=== PATIENT | male | born 1940 | race Caucasian/White ===

== ENCOUNTER 2016-05-10 05:55 | Day surgery (SDC) | payer MEDICARE ==
[~2016-05-10 05:55] MED LIST: IV START KIT ONE; LACTATED RINGERS 0 ML ONE
[2016-05-10] MEDS ORDERED: CEFAZOLIN SODIUM 2 GRAM PREMIX 100 ML IV ONE (06:00)
[2016-05-10] MEDS ORDERED: LACTATED RINGERS 1,000 ML ONE ×2 (06:00→07:39)
[2016-05-10] MEDS ORDERED: CEFAZOLIN SODIUM 2 GRAM PREMIX 100 ML IV SCH (06:00)
[2016-05-10] MEDS ORDERED: IV START KIT ONE (06:00)
[2016-05-10] MEDS ORDERED: SPINAL PROCEDURAL TRAY 1 EACH ONE (07:07)
[2016-05-10] MEDS ORDERED: BUPIVACAINE 0.75% SPINAL AMPUL 2 ML ONE (07:07)
[2016-05-10] MEDS ORDERED: MIDAZOLAM HCL 1 MG/ML 2ML VIAL ONE ×3 (07:09→08:17)
[2016-05-10] MEDS ORDERED: FENTANYL 100 MCG/2 ML VIAL ONE (07:09)
[2016-05-10] MEDS ORDERED: EPHEDRINE SULFATE 50 MG/ML 1ML VIAL ONE (07:09)
[2016-05-10] MEDS ORDERED: SODIUM CHLORIDE 0.9% FLUSH 10 ML ONE (07:09)
[2016-05-10] MEDS ORDERED: IOPAMIDOL 300 (61%) 30 ML SDV ONE (07:34)
[2016-05-10] MEDS ORDERED: OPIUM/BELLADONNA ALKALOIDS 1 EACH SUP PR ONE (07:36)
[2016-05-10] MEDS ORDERED: PROPOFOL 40 ML IV ONE (09:02)
[2016-05-10] MEDS ORDERED: PROMETHAZINE HCL 25 MG/ML VIAL IM PRN (09:32)
[2016-05-10] MEDS ORDERED: ATROPINE SULFATE 0.4 MG/1 ML VIAL IV PRN (09:32)
[2016-05-10] MEDS ORDERED: FENTANYL 100 MCG/2 ML VIAL IV PRN (09:32)
[2016-05-10] MEDS ORDERED: ONDANSETRON 4 MG/2ML 2 ML VIAL IV PRN ×2 (09:32→10:28)
[2016-05-10] MEDS ORDERED: HYDROMORPHONE HCL 1 MG/ML SYRINGE IV PRN (09:32)
[2016-05-10] MEDS ORDERED: NALOXONE HCL 0.4 MG/ML VIAL IV PRN (09:32)
--- NOTE | 2016-05-10 09:41 | OP ---
Jake Anton [id number] DATE OF OPERATION: May 10, 2016 SURGEON: Allen Almonte M.D. SEROLOGIST: None. ANESTHESIA: Spinal progressing to general anesthesia. PREPROCEDURE DIAGNOSIS: Gross hematuria due to bladder cancer. POSTOPERATIVE DIAGNOSIS: Gross hematuria due to bladder cancer. PROCEDURE: Cystoscopy, bilateral retrograde ureterography, transurethral resection of large bladder tumor. SPECIMEN: Fragments of bladder tumor. INDICATIONS: A 75-year-old man with persistent gross hematuria for over 7 months and a past history of a bladder tumor resected over 10 years ago elsewhere. He was actually hospitalized recently for anemia and required transfusions. He is a past cigarette smoker. On CT scan there was a bladder mass without hydronephrosis or signs of lymph node involvement. Cystoscopy confirmed the presence of a bladder tumor situated mainly anteriorly approaching the bladder neck. He present now for resection. FINDINGS: Anterior urethra normal aside from some crescentic asymmetric superficial scarring of the urethra without obstruction. Membranous urethra was intact. Prostatic fossa is approximately 3 to 3.5 cm in length, but partially obstructed by prostate enlargement. Bladder neck is mildly to moderately elevated. Ureteral orifices are normally disposed. Retrograde studies were negative on both sides aside displacement of the ureter over internal structures. The tumor itself was large and papillary, situated on the low anterior wall approaching the bladder neck and progressing down the left side with involvement of the bladder neck. DETAILS OF PROCEDURE: The patient identified and brought to the operating room where spinal anesthesia was induced and he was placed in the dorsolithotomy position. The genital region was prepared and draped sterilely. A 21-Nigerian rigid cystoscope was introduced with saline as a irrigant and findings are reported above. It took several minutes after draining the blood urine from the bladder to identify the ureteral orifices and obtain retrograde studies using a cone tip catheter, fluoroscopic imaging, and contrast injection. Once that was complete, we switched over to a 27-Nigerian resectoscope sheath with a small bipolar loop. Continuing with saline as an irrigant we began resection on the approachable parts of the tumor. Eventually we encountered difficulty with the patient's troubled breathing because of intrinsic pulmonary disease, and therefore switch to general anesthesia. Resection continued using some suprapubic pressure to push the anterior wall into position. Once the tumor had been entirely resected, it was clear that invasion was quite likely and that complete resection was not possible. None the less all papillary tumor that was visible was removed and the base was fulgurated. After removing all portions of the specimen, the urine was clear and we removed the resectoscope and placed a 24-Nigerian Fu catheter to gravity drainage with 25 mL of douglas in its balloon. Three way saline irrigation was instituted. Estimated blood loss 75 mL or less. No early complications. The patient tolerated the procedure well and was taken in stable condition to postanesthesia room. JOB: [id number] CC: Dr. Jd Rosa
[2016-05-10] MEDS ORDERED: LACTATED RINGERS 1,000 ML IV SCH (09:45)
[2016-05-10] MEDS ORDERED: NALBUPHINE HCL 10 MG/ML AMP IV ONE (10:26)
[2016-05-10] MEDS ORDERED: MORPHINE SULFATE 2 MG/ML SYRINGE IV PRN (10:28)
[2016-05-10] MEDS ORDERED: OPIUM/BELLADONNA ALKALOIDS 1 EACH SUP PR PRN (10:28)
[2016-05-10] MEDS ORDERED: HYDROCODONE/ACETAMINOPHEN 5/325MG TABLET PO PRN (10:28)
[2016-05-10] MEDS ORDERED: MORPHINE SULFATE 4 MG/ML SYRINGE IV PRN (10:37)
[2016-05-10] MEDS ORDERED: MORPHINE SULFATE 10 MG/ML SYRINGE IV PRN (10:38)
--- NOTE | 2016-05-10 11:41 | RAD ---
RETROGRADE UROGRAM COMPARISON: CT abdomen and pelvis 04/18/2016 HISTORY: Bladder cancer. Transurethral resection of bladder tumor. Intraoperative retrograde urograms. Fluoroscopy time: 46.5 FINDINGS: Views: 4 views of the right retrograde urogram and 4 views of the left retrograde urogram. Ureters: Both ureters are normal. Collecting systems: Both renal collecting systems are normal. Stent: None IMPRESSION: 1. Normal bilateral retrograde urograms.
[2016-05-10] MEDS ORDERED: PHENAZOPYRIDINE HCL 200 MG TABLET PO SCH (15:00)
--- NOTE | 2016-05-13 12:24 | SURGPATH ---
[facility] [address] [place] [id number] Patient Name: FELICITA BORJA MR#: [id number] : 1940 Gender: M Specimen #: [id number] Collected: 05/10/2016 Received: 05/11/2016 Reported: 05/13/2016 Submitting Phys: GODWIN MARTINS Copy To Phys: [facility] Clinical History / Pre-Operative Diagnosis: Bladder tumor, patient with previous bladder tumor Specimen Source / Surgical Procedure Performed: Bladder tumor excision HIGH PRIORITY DIAGNOSIS. REQUIRES CLINICAL ATTENTION Interpretation: URINARY BLADDER, TRANSURETHRAL TUMOR RESECTION: - MYOINVASIVE HIGH-GRADE PAPILLARY UROTHELIAL CARCINOMA Electronically Signed Out Rachell Hayes M.D. Gross Description: The specimen is received in formalin labeled with the patient's name and "bladder tumor excision". The specimen consists of a 6.0 x 6.0 x 1.5 cm aggregate of morrison-brown soft friable tissue and clotted blood. A-L. entire specimen SHELLY Sanchez Microscopic Description: A partially necrotic, high-grade papillary urothelial carcinoma shows numerous juxtapositions and interdigitations with chronically inflamed subepithelial tissue and abundant smooth muscle, suggesting an inverted growth pattern. The tumor interface is generally smooth, without desmoplastic reaction and tangential sectioning and thermal injury focally complicate interpretation. However, immunostains with smooth muscle myosin and pankeratin clarify foci of microinvasion into what appears to be muscularis propria. This malignant diagnosis is confirmed by second review at our intradepartmental conference. (Analyte-specific reagents (ASR) are used in many laboratory tests necessary for standard medical care and generally do not require FDA approval. This test was developed and its performance characteristics determined by [facility]. It has not been cleared or approved by the U.S. Food and Drug Administration. [facility] is certified under the Clinical Laboratory Improvement Amendments of 1988 as qualified to perform high complexity clinical laboratory testing. All controls stain as expected.) 1: 36652, 17349, 63876 C67.9
== END 2016-05-10 14:00 | disposition home or self-care (01) ==
LOC: SDC 05:55
PROVIDERS: ATTEND Urology
PROC: 0TBB8ZZ Excision of Bladder, Via Natural or Artificial Opening Endoscopic (ICD-10-PCS; principal; 2016-05-10)
DX: C67.9 Malignant neoplasm of bladder, unspecified (principal); N32.0 Bladder-neck obstruction; I71.4 Abdominal aortic aneurysm, without rupture; K57.90 Diverticulosis of intestine, part unspecified, without perforation or abscess without bleeding; I10 Essential (primary) hypertension; E78.5 Hyperlipidemia, unspecified; Z87.891 Personal history of nicotine dependence; K21.9 Gastro-esophageal reflux disease without esophagitis